=== PATIENT | female | born 1945 | race Caucasian/White ===

== ENCOUNTER 2021-02-28 11:56 | Inpatient (IN) | payer OTHER ==
[~2021-02-28] VITALS: Ht 154.9 cm; Wt 65.8 kg
[2021-02-28 12:09] VITALS: BP 107/79
[2021-02-28] MEDS ORDERED: ZESTRIL20 MG PO (12:14)
[2021-02-28] MEDS ORDERED: LEVO-T75 MCG PO (12:15)
[2021-02-28] MEDS ORDERED: NORVASC5 MG PO (12:15)
[2021-02-28] MEDS ORDERED: OMEPRAZOLE40 MG PO (12:15)
[2021-02-28 12:35] LABS: ABSOLUTE LYMPHOCYTES 1.9 thou/uL (0.8-5.3); ABSOLUTE MONOCYTES 0.7 thou/uL (0.0-1.2); ABSOLUTE NEUTROPHILS 3.5 thou/uL (1.6-8.1); BASOPHILS 0.7 %; EOSINOPHILS 0.6 %; HEMATOCRIT 41.8 % (37.0-47.0); HEMOGLOBIN 14.2 gm/dL (12.0-15.0); LYMPHOCYTES 31.3 %; MCH 30.6 pg (26.0-34.0); MCHC 33.9 g/dL (28.0-37.0); MCV 90.1 fL (80.0-100.0); MONOCYTES 10.6 %; NUCLEATED RBCS 0 /100WBC; PLATELET COUNT* 304 thou/uL (150-400); POLYS 56.8 %; RBC 4.64 mil/uL (4.20-5.00); RDW-CV 13.1 % (10.5-14.5); WBC 6.2 thou/uL (4.0-11.0)
[2021-02-28 12:45] LABS: CALCIUM 9.5 mg/dL (8.5-10.1); CREATININE 1.1 mg/dL (0.6-1.3)
[2021-02-28 12:50] LABS: ALBUMIN 3.8 g/dL (3.4-5.0); TOTAL BILIRUBIN 0.4 mg/dL (<0.1-1.0); TOTAL PROTEIN 8.5 g/dL (6.4-8.2)
[2021-02-28 17:48] LABS: CHOLESTEROL 226 mg/dL (<200); HDL CHOLESTEROL 45 mg/dL (>40); LDL CHOLESTEROL 138 mg/dL (<100); SERUM ASSESSMENT Clear; TRIGLYCERIDE 216 mg/dL (<150); VLDL 43 mg/dL (<40)
[2021-02-28 18:37] VITALS: BP 107/80
[2021-02-28 20:00] VITALS: BP 134/88
[2021-02-28 23:00] VITALS: BP 133/84
[2021-03-01 04:00] VITALS: BP 116/76
[2021-03-01 08:00] VITALS: BP 128/90
--- NOTE | 2021-03-01 11:16 | EKG ---
[place] [address] ELECTROCARDIOGRAM REPORT Name: JEAN-PIERRE MONTEZ Room: [address] M.R.#: [id number] Admission: 02/28/21 Attend Phys: Antonio Matos, Discharge: Date of : 45 Date of Service: 02/28/21 1206 Report #: [id number] THIS REPORT FOR: //name// [facility] ED Test Date: 2021-02-28 Test Time: 12:06:35 Pat Name: JEAN-PIERRE MONTEZ Department: Room: [facility] Gender: F Auto Brake Mechanic: : 1945 Requested By: Se Barrios Order Number: [id number] MD: rA Wright Measurements Intervals [place] Rate: 104 P: 60 ID: 176 QRS: -41 QRSD: 101 T: 34 QT: 346 QTc: 455 Interpretive Statements Sinus tachycardia Probable left atrial enlargement Left axis deviation Low voltage, precordial leads RSR' in V1 or V2, probably normal variant Anteroseptal infarct, age indeterminate possible Baseline wander in lead(s) III No previous ECG available for comparison Electronically Signed On 03-01-2021 11:15:57 MANAGER INTRANET by Ar Wright [email or web address] <ELECTRONICALLY SIGNED> By: Ar Wright MD, [facility] 03/01/21 1115 1206 120 Ar Wright MD, [facility] /EPI
[2021-03-01 12:00] VITALS: BP 117/79
--- NOTE | 2021-03-01 15:51 | EKG ---
[place] [address] ELECTROCARDIOGRAM REPORT Name: JEAN-PIERRE MONTEZ Room: [address] ADM IN M.R.#: [id number] Admission: 02/28/21 Attend Phys: Antonio Matos, Discharge: Date of : 45 Date of Service: 03/01/21 1105 Report #: [id number] THIS REPORT FOR: //name// [facility] Test Date: 2021-03-01 Test Time: 11:05:36 Pat Name: JEAN-PIERRE MONTEZ Department: Room: [address] Gender: F Clinical Studies Specialist: ASHER : 1945 Requested By: Antonio Matos Order Number: [id number] Reading MD: Ar Wright Measurements Intervals [place] Rate: 68 P: 65 [place]: 217 QRS: -52 QRSD: 107 T: 89 QT: 446 QTc: 475 Interpretive Statements Sinus rhythm Borderline prolonged OH interval Left anterior fascicular block Abnormal R-wave progression, late transition Nonspecific T abnormalities, lateral leads Compared to ECG 02/28/2021 12:06:35 Left anterior fascicular block now present T-wave abnormality now present Sinus tachycardia no longer present Left-axis deviation persists Electronically Signed On 03-01-2021 15:50:55 SENIOR SYSTEMS PROGRAMMER by Ar Wright [email or web address] <ELECTRONICALLY SIGNED> By: Ar Wright MD, [facility] 03/01/21 1550 1105 1105 Ar Wright MD, [facility] /EPI
[2021-03-01 15:55] VITALS: BP 117/79
[2021-03-01 16:00] VITALS: BP 129/76
--- NOTE | 2021-03-01 16:21 | CARD ---
[address] [address] CARDIAC CATH REPORT Name: MONTEZJEAN-PIERRE Room: [address] IN [facility].#: [id number] Admission: 02/28/21 Attend Phys: Antonio Matos MD Discharge: Date of : 45 Report #: [id number] THIS REPORT FOR: cc: Dayo Nicholson Bruce R. DO Holkins, John M. MD [facility] ~ APPROVED REPORT Study performed: 03/01/2021 09:41:39 Patient Details Patient Status: In-Patient Room #: The patient is a 75 year-old female Event Personnel Abrahan Couch RTR Monitor, Karen López RTR HalubFaraz Tiffany RN RN, Antonio Matos Missile Inspector Preflight, rA Wright Direct Care Specialist Procedures Performed Left Heart Cath w/or w/o Coronaries [id number] [facility] Place w/wo Plasty Single RCA [id number] Hemostasis w/ Angioseal Indication Dyspnea Risk Factors Hypercholesterolemia, Hypertension Admission/Lab Medications/Medications given during procedure Fentanyl IV 25 mcg, Midazolam (Versed) IV 1 mg, Lidocaine Subcut 20 ml, Lidocaine Subcut 20 ml, Angiomax IV 21.9 ml per hr, Effient PO 60 mg Procedure Narrative The patient was brought electively to the Cardiac Catheterization Laboratory and was prepped and draped in a sterile manner. The right femoral was infiltrated with 2% Lidocaine subcutaneous anesthesia. IV conscious sedation was used throughout procedure with appropriate monitoring and was performed in the presence of a registered nurse who was an independent trained observer other than the physician performing the procedure. A [place] 6 FR sheath was inserted into the right femoral artery. Coronary angiography was performed using coronary diagnostic catheters. The right [place] [address] CARDIAC CATH REPORT Name: MELIDAJEAN-PIERRE Ambrosio Room: [address] IN [facility]#: [id number] Admission: 02/28/21 Attend Phys: Antonio Matos MD Discharge: Date of : 45 Report #: [id number] and visualized with a Diagnostic 6Fr JR4 catheter. The left coronary system was accessed and visualized with a Diagnostic 6Fr JL4 catheter. The left ventricle was accessed and visualized with a Diagnostic 6Fr Pigtail catheter. Left ventricular/Aortic Valve gradient assessed via catheter pullback. Left ventriculogram was performed in RENDON projection. Pre-demployment femoral angiogram was performed . Closure device was deployed with a 6 Fr Angioseal. The patient tolerated the procedure well and there were no complications associated with the procedure. There was no hematoma. Intraoperative Conscious Sedation Sedation start time: 957 Case end Time: 104 Fentanyl 50 mcg Versed 2 mg Fluoro Time: 15.3 minutes Dose: DAP 916187 cGycm2 1711.20 mGy Contrast Type and Amount: Visipaque 280 mL Coronary Angiography The patient's coronary anatomy is right dominant. Diagnostic Cath Left Main 0% narrowing LAD 40% tubular proximalmid LAD narrowing Circumflex 40% narrowing of the proximal portion of the first marginal branch of the nondominant circumflex Right Coronary 80% tubular ostial proximal right coronary stenosis Left Ventriculography The left ventricle is normal in size with normal contractility. The left ventricular ejection fraction is estimated to be 65-70%. Left ventricular wall motion abnormalities are not present. There is no mitral insufficiency. Hemodynamics The aortic pressure is 140/66 mmHg with a mean of 65 mmHg. The left ventricular pressure is 135/0 mmHg with a mean of mmHg. The left ventricular end diastolic pressure is 9 mmHg. There was no gradient across the aortic valve upon pullback. PCI Technique Lesion Anticoagulation was achieved with Angiomax. 10mL Percutaneous coronary intervention was performed on [place] [address] CARDIAC CATH REPORT Name: JEAN-PIERRE MONTEZ Room: [address]#: [id number] Admission: 02/28/21 Attend Phys: Antonio Matos MD Discharge: Date of : 45 Report #: [id number] artery. The lesion stenosis prior to intervention was 80% with SHANICE 3 flow. A 6Fr JR4 SH Guide Catheter was used to engage the Right ostium. A IG: BMW 190cm Interventional Guidewire was used to cross the lesion. BALLOON DILATION A Balloon catheter Trek RX 3.0 X 12 was inserted and inflated up to 16.00atm for 14seconds. Additional Inflation: 18.00atm for 11seconds. STENT DEPLOYMENT A drug-eluting stent [place] RX Stent 3.5X15mm was inserted and inflated up to 14.00atm for 13seconds. Additional Inflation: 16.00atm for 8seconds. POST STENT DEPLOYMENT BALLOON DILATION A Balloon catheter NC Trek 4.0 X 12 was inserted and inflated up to 15.00atm for 11seconds. Additional Inflation: 16.00atm for 10seconds. Additional Inflation: 17.00atm for 8seconds. Final angiography reveals 10 % stenosis with SHANICE 3 flow. COMMENTS The PCI was technically complex by virtue of the aorto- ostial location of the culprit lesion requiring precise positioning of the stent after lesion preparation. Conclusion 1. Significant multivessel coronary artery disease characterized by the following: A 40% tubular proximalmid LAD narrowing B 40% narrowing in the proximal portion of the first marginal branch of the nondominant circumflex C large dominant right coronary artery with 80% aorto- ostial stenosis 2. Normal left-sided hemodynamic study 3. Normal left ventricular systolic function, estimated ejection fraction 65-70% [place] [address] CARDIAC CATH REPORT Name: MONTEZ,JEAN-PIERRE Ambrosio Room: [address] IN [facility]#: [id number] Admission: 02/28/21 Attend Phys: Antonio Matos MD Discharge: Date of : 45 Report #: [id number] 4. Successful PCI with deployment of a drug-eluting stent at the site of 80% aorto- ostial right coronary stenosis with 10% residual narrowing and SHANICE-3 flow to the distal vessel Recommendations Cardiac Risk Reduction Program Aggressive Medical Therapy Medications Administered Aspirin (any) Prasugrel Diagnostic Cath Approved by: Antonio Matos MD Date/Time: 03/01/2021 16:17:08 <ELECTRONICALLY SIGNED> By: Ar Wright MD, FACC 03/01/211620 20 20Ar Wright MD, FACC /INF
[2021-03-02 00:39] VITALS: BP 151/82
[2021-03-02 04:05] VITALS: BP 139/74
[2021-03-02 08:36] VITALS: BP 141/89
[2021-03-02] MEDS ORDERED: BAYER CHEWABLE81 MG PO (11:22)
[2021-03-02] MEDS ORDERED: EFFIENT10 MG PO (11:22)
[2021-03-02 11:37] VITALS: BP 135/87
[2021-03-02 12:18] VITALS: BP 135/87
--- NOTE | 2021-03-02 12:25 | D ---
[address] [address] DISCHARGE SUMMARY Name: MONTEZJEAN-PIERRE Room: [address] IN M.R.#: [id number] Admission: 02/28/21 Attend Phys: Antonio Matos MD Discharge: Date of : 45 Report #: [id number] THIS REPORT FOR: cc: Dayo Nicholson Bruce R. DO Holkins, John M. MD [facility] ~ FINAL DISCHARGE DIAGNOSES: 1. Unstable angina. 2. Dyspnea on exertion. 3. Coronary artery disease. 4. Status post PCI of the ostial proximal right coronary artery. 5. Hypertension. 6. Ascending aortic aneurysm. 7. Hypothyroidism. PROCEDURES: -- On 03/01/2021-left heart catheterization, left ventriculography, selective coronary arteriography, and percutaneous coronary intervention to the ostial proximal right coronary artery. HISTORY OF PRESENT ILLNESS: The patient is a pleasant 75-year-old female who presented to Dr. Estrada with episodes of increased dyspnea and mild chest discomfort with activity. She has underlying hypertension and has been noted to have a thoracic aortic aneurysm in the ascending aorta estimated at 4.3 cm. She has underlying hypertension as noted above. In this context, cardiac catheterization was recommended. That study revealed significant coronary disease characterized by 80% ostial proximal right coronary stenosis, 40% narrowing in the proximal portion of the first marginal branch of the circumflex, and 40% tubular proximal LAD narrowing. In this setting, we performed PCI, deploying one 3.5 x 15 mm Ricky drug-eluting stent in the ostial proximal right coronary artery, postdilated to 4 mm with 10% residual narrowing and SHANICE 3 flow of the distal vessel. The patient did well post-procedurally and ambulated in the hallways without difficulty. There was good hemostasis at the right femoral site of catheterization. Laboratory during the hospitalization revealed a white blood cell count of 6200, hemoglobin of 14.2 and platelets of 304,000. Sodium 140, potassium 4.0, BUN 17, creatinine 1.1. High sensitive troponin Is were normal at 6 and 5. LDL cholesterol was elevated at 138 mg percent. The patient ambulated in the hallways without difficulty and was discharged to home on 03/02/2021 on the following medications: Aspirin 81 mg daily, [place] [address] DISCHARGE SUMMARY Name: JEAN-PIERRE MONTEZ Room: [address] IN [facility]#: [id number] Admission: 02/28/21 Attend Phys: Antonio Matos MD Discharge: Date of : 45 Report #: [id number] 10 mg daily with a 60 mg kalie-procedural dose, lisinopril 20 mg daily, L-thyroxine 88 mcg daily, omeprazole 40 mg daily and amlodipine 5 mg daily with a plan to commence statin therapy. The patient will be seen and followed by Dr. Estrada in three to four weeks. Therefore, she is discharged home in stable condition on the aforementioned medications with followup as described above. <ELECTRONICALLY SIGNED> By: Ar Wright MD, FACC 03/02/21 1225 1031 1053Ar Wright MD, FACC /nt
[2021-03-02] MEDS ORDERED: NITROGLYCERIN0.4 MG SUBLING (12:31)
--- NOTE | 2021-03-05 10:49 | EKG ---
[place] [address] ELECTROCARDIOGRAM REPORT Name: JEAN-PIERRE MONTEZ Room: [address] IN M.R.#: [id number] Admission: 02/28/21 Attend Phys: Antonio Matos, Discharge: 03/02/21 Date of : 45 Date of Service: 03/02/21 1054 Report #: [id number] THIS REPORT FOR: //name// [facility] Test Date: 2021-03-02 Test Time: 10:54:15 Pat Name: JEAN-PIERRE MEDINATS Department: Room: [address] Gender: F Batch Plant Operator: AF : 1945 Requested By: Antonio Matos Order Number: [id number] Reading MD: Zeyad Naranjo Measurements Intervals [place] Rate: 86 P: 54 [place]: 204 QRS: -41 QRSD: 102 T: 30 QT: 386 QTc: 462 Interpretive Statements Sinus rhythm Left axis deviation Low voltage, precordial leads Abnormal R-wave progression, late transition Compared to ECG 03/01/2021 11:05:36 Low QRS voltage now present T-wave abnormality no longer present Electronically Signed On 03-05-2021 10:49:45 INSPECTOR HANDBAG FRAMES by Zeyad Naranjo [email or web address] <ELECTRONICALLY SIGNED> By: Zeyad Naranjo MD, FACC 03/05/21 1049 1054 1054 Zeyad Naranjo MD, [facility] /EPI
== END 2021-03-02 13:20 | disposition home or self-care (01) | DRG 247 ==
LOC: M.ERS 11:56 → M.2W 13:21 → M.TBA-ER 13:21 → M.2W 13:21
PROVIDERS: Emergency Medicine; Registered Nurse; ADMIT Internal Medicine Cardiovascular Disease; ATTEND Internal Medicine Cardiovascular Disease
DX: I25.110 Atherosclerotic heart disease of native coronary artery with unstable angina pectoris (principal); E03.9 Hypothyroidism, unspecified; I71.2 Thoracic aortic aneurysm, without rupture; Z20.822 Contact with and (suspected) exposure to COVID-19; I10 Essential (primary) hypertension; Z88.6 Allergy status to analgesic agent; Z88.8 Allergy status to other drugs, medicaments and biological substances; Z82.49 Family history of ischemic heart disease and other diseases of the circulatory system; Z88.2 Allergy status to sulfonamides

== ENCOUNTER → 2021-04-27 | Outpatient (CLI) | payer OTHER ==
[~2021-04-27] MED LIST: BAYER CHEWABLE81 MG PO; EFFIENT10 MG PO; LEVO-T75 MCG PO; NITROGLYCERIN0.4 MG SUBLING; NORVASC5 MG PO; OMEPRAZOLE40 MG PO; ZESTRIL20 MG PO
--- NOTE | 2021-04-27 16:09 | CARDNUC ---
[place] [address] CARDIAC NUCLEAR IMAGING REPORT Name: JEAN-PIERRE MONTEZ [facility]#: [id number] Admission: 04/27/21 Attend Phys: Alea Estrada, Discharge: Date of : 45 Date of Service: 04/27/21 1608 Report #: [id number] THIS REPORT FOR: cc: Bridget Villavicencio MD, Kandice L. MD Park, Jin S. MD ~ ADDENDUM APPROVED REPORT Imaging Protocol: Rest Tc-99m/Stress Tc-99m 1 day Study performed: 04/27/2021 11:08:31 Indication: CAD Patient Location: Out-Patient Stress Nurse: SANIYA Bess Tech:CONRADO [place] Ht: 5 ft 1 in Wt: 139 lbs BSA: 1.62 m2 BMI: 26.26 Medical History Medical History: CAD s/p stent, HTN, Hyperlipidemia, AAA Medications: amlodipine, asa-81, lisinopril, prasugrel Allergies: Ibuprofen, sulfa, tramadol Cardiac Risk Factors: Age, HTN, Hyperlipidemia Previous Cardiac Procedures: PCI Exercise History: Indeterminate Resting Data Rest SPECT myocardial perfusion imaging was performed in supine position 30 minutes following the intravenous injection of 9.5 mCi of Tc-99m Sestamibi. Time of rest injection: 1010 Date: 04/27/2021 The images were gated to evaluate regional wall motion and calculate left ventricular ejection fraction. Administration Route: IV Exercise Stress At peak stress, the patient was injected intravenously with 33.9mCi of Tc-99m Sestamibi. Time of stress injection: 1110 Date: 04/27/2021 Administration Route: IV Gated Stress SPECT was performed 30 minutes after stress injection. The images were gated to evaluate regional [place] [address] CARDIAC NUCLEAR IMAGING REPORT Name: JEAN-PIERRE MONTEZ Room: [facility]#: [id number] Admission: 04/27/21 Attend Phys: Alea Estrada, Discharge: Date of : 45 Date of Service: 04/27/21 1608 Report #: [id number] left ventricular ejection fraction. Prone imaging was performed. Stress Test Details Stress Test: Exercise stress testing was performed using a Dayo protocol. HR Max Heart Rate (APMHR): 145 bpm Resting HR: 77 bpm Target HR (85% APMHR): 123 bpm Max HR Achieved: 152 bpm % of APMHR: 104 Recovery HR: 110 bpm BP Resting BP: 110/88 mmHg Max BP: 167/87 mmHg Recovery BP: 117/77 mmHg ECG Resting ECG: Sinus Rhythm Stress ECG: Sinus Rhythm ST Change: Non-ischemic Clinical Reason for Termination: Dyspnea Study Quality Study: Good Study Data Post stress, the left ventricular ejection was 85%.. SSS: 0 SRS: 1 SDS: 0 TID = 0.83. Perfusion Normal left ventricular perfusion. Normal perfusion on both the stress and rest images. Wall Motion Normal left ventricular wall motion. Nuclear Conclusion ECG Findings: negative for ischemia Clinical Findings: non-diagnostic Nuclear Findings: [place] [address] CARDIAC NUCLEAR IMAGING REPORT Name: JEAN-PIERRE MONTEZ Room: [facility]#: [id number] Admission: 04/27/21 Attend Phys: Alea Estrada, Discharge: Date of : 45 Date of Service: 04/27/211607 Report #: [id number] Exercise Capacity: not assessed Left Ventricular Function: normal This study is of low probability for inducible ischemia or prior infarct. Normal global and segmental LV systolic function. <ELECTRONICALLY SIGNED> By: Gurpreet Zuleta MD 04/27/211607 07 07 Gurpreet Zuleta MD /INF
== END ==
LOC: M.NUC 04-12 15:08 → M.CRD 04-18 14:00 → M.NUC 04-18 15:00 → M.CRD 04-26 14:00 → M.NUC 04-26 15:00
PROVIDERS: ATTEND Internal Medicine
DX: I25.10 Atherosclerotic heart disease of native coronary artery without angina pectoris (principal); Z95.5 Presence of coronary angioplasty implant and graft